=== PATIENT | female | born 1970 | race Two or more races ===

== ENCOUNTER 2019-11-30 17:15 | Observation (INO) | payer MEDICAID ==
[2019-11-30] MEDS ORDERED: HYDROmorphone 1 MG/ML Syringe IVPUSH STA (17:53)
[2019-11-30] MEDS ORDERED: Metoclopramide 10 MG/2 ML SDV IVPUSH ONE (17:53)
[2019-11-30] MEDS ORDERED: Sodium Chloride 0.9% 1,000 ML IV SCH (18:00)
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
[2019-11-30] MEDS ORDERED: Iopamidol 612 MG/ML 100 ML Bottle IVPUSH ONE (18:59)
[2019-11-30] MEDS ORDERED: Sodium Chloride 0.9% 10 ML Syringe FLUSH PRN (18:59)
--- NOTE | 2019-11-30 19:58 | CT ---
CT abdomen and pelvis Technique: Multiple axial sections were obtained from slightly below the top of the liver inferiorly through the pubic symphysis. Intravenous contrast was utilized. Small amount of contrast is noted within the stomach. Delayed images were obtained through the bladder. Comparison: No prior abdominal imaging. Findings: Visualized lung bases show nothing acute. Liver shows no focal parenchymal abnormality. There is a slight amount of decreased density next to the ligamentum teres fissure which represents small amount of fat which is felt to be a normal variant. Spleen size is normal. Adrenal glands show no nodule. Kidneys show symmetric contrast enhancement without hydronephrosis or mass. Pancreas is within normal limits. Gallbladder contains no calcified gallstones. Aorta shows no aneurysm. No retroperitoneal adenopathy or mesenteric abnormalities are seen. Minimal hiatal hernia is noted. Dilated air and fluid-filled small bowel are noted. This dilatation stops at the ileocecal valve. Colon is decompressed. Appendix not visualized with certainty. No pelvic mass or adenopathy is seen. No free fluid or inflammatory change is appreciated. Delayed images show no contrast within the bladder raising the possibility of dehydration. Bone window settings were reviewed. No acute osseous finding is seen. Mild degenerative change noted within the spine which is most prominent at L5-S1. Impression: 1. Fluid and air-filled dilated small bowel. This small bowel dilatation stops at the ileocecal valve. Etiology for this obstruction is not seen at the ileocecal valve. Colonoscopy is recommended to further evaluate. 2. Other findings believed to be incidental. No other acute abnormality is seen. Diagnostic code #5 This report was dictated in MDT
[2019-11-30] MEDS ORDERED: Ondansetron 4 MG/2 ML SDV IVPUSH ONE (20:13)
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
[2019-11-30] MEDS ORDERED: Piperacillin/Tazobactam 4.5 GM in Sodium Chloride 0.9% 100 ML IV ONE (21:00)
[2019-11-30] MEDS: Morphine 2 MG/ML Syringe IVPUSH PRN (21:16)
[2019-11-30] MEDS: Lactated Ringers 1,000 ML IV SCH (21:17)
[2019-11-30] MEDS ORDERED: Metoprolol Tartrate 5 MG/5 ML SDV IVPUSH ONE (22:09)
[2019-12-01] MEDS ORDERED: Metoprolol Tartrate 5 MG/5 ML SDV IVPUSH PRN (00:30)
[2019-12-01] MEDS: Morphine 2 MG/ML Syringe IVPUSH PRN (01:19)
[2019-12-01] MEDS: Piperacillin/Tazobactam 4.5 GM in Sodium Chloride 0.9% 100 ML IV SCH ×2 (05:14→15:11)
[2019-12-01] MEDS ORDERED: Ondansetron 4 MG/2 ML SDV IVPUSH PRN (06:05)
--- NOTE | 2019-12-01 07:23 | CR ---
Chest: Portable view of the chest was obtained. Comparison: No prior chest imaging is available. Heart size is normal. Tortuous thoracic aorta is seen. Nasogastric tube is seen with tip lying within the stomach. Lungs are clear. Bony structures are grossly intact. Impression: 1. Tip of nasogastric tube within the stomach. 2. Nothing acute is otherwise seen on portable chest x-ray. Diagnostic code #2 Study was dictated in MDT
--- NOTE | 2019-12-01 08:14 | PCM.SN ---
- Free Text/Narrative Note: Admitted last night with small bowel obstruction. IV metoprolol started last night for BP control. S: pain better. No flatus. O: Hypertensive with systolics >190 mm Hg on arrival to the wards. Improved with IV metoprolol. Other vitals within normal range. NG output <200 cc, looks clear Abd soft, not especially distended, with mild diffuse tenderness WBC down to 10 from 15; Cr stable at 1.2 A: small bowel obstruction with transition point at ileocecal junction, without good visualization of the appendix. Minimal NG output and unremarkable abdominal exam with regard to obstruction. P: Improvement in symptoms with IV fluid resuscitation and antibiotics. Given CT findings and persistent pain, plan for diagnostic laparoscopy today.
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
[2019-12-01] MEDS: Lactated Ringers 1,000 ML IV SCH (09:44)
[2019-12-01] MEDS ORDERED: Scopolamine 1.5 MG Transdermal Patch TOP ONE (09:47)
[2019-12-01] MEDS ORDERED: Bupivacaine 0.5%/EPINEPHrine 1:200,000 50 ML MDV ONE (09:48)
[2019-12-01] MEDS ORDERED: Rocuronium 50 MG/5 ML Vial ONE (10:01)
[2019-12-01] MEDS ORDERED: Midazolam 1 MG/ML 2 ML SDV ONE (10:02)
[2019-12-01] MEDS ORDERED: Ondansetron 4 MG/2 ML SDV ONE (10:02)
[2019-12-01] MEDS ORDERED: fentaNYL 250 MCG/5 ML SDV ONE (10:02)
[2019-12-01] MEDS ORDERED: Propofol 200 MG/20 ML SDV ONE (10:02)
[2019-12-01] MEDS ORDERED: Lactated Ringers 1,000 ML ONE (10:03)
[2019-12-01] MEDS ORDERED: Lidocaine 1% 4 ML ONE (10:04)
[2019-12-01] MEDS ORDERED: Succinylcholine/Sod PF 100 MG/5 ML SYRINGE IV ONE (10:06)
[2019-12-01] MEDS ORDERED: fentaNYL 100 MCG/2 ML SDV IVPUSH PRN (11:29)
[2019-12-01] MEDS ORDERED: HYDROmorphone 0.5 MG/0.5 ML Syringe IVPUSH PRN (11:29)
[2019-12-01] MEDS ORDERED: HYDROmorphone 0.5 MG/0.5 ML Syringe ONE (11:38)
--- NOTE | 2019-12-01 12:48 | PCM.POSTAN ---
POST ANESTHESIA ASSESSMENT - MENTAL STATUS Mental Status: Somnolent - VITAL SIGNS Vital Signs: Last Vital Signs Temp 98.7 F 12/01/19 12:36 Pulse 65 12/01/19 07:48 Resp 13 12/01/19 12:45 BP 160/92 H 12/01/19 12:45 Pulse Ox 100 12/01/19 12:45 - RESPIRATORY Respiratory Status: Respiratory Rate WNL, Airway Patent, O2 Saturation Stable, Supplemental Oxygen - CARDIOVASCULAR CV Status: Pulse Rate WNL, Blood Pressure Stable - GASTROINTESTINAL GI Status: No Symptoms - PAIN Pain Score: 0 - POST OP HYDRATION Hydration Status: Adequate & Stable
[2019-12-01] MEDS ORDERED: Prochlorperazine 10 MG/2 ML SDV IVPUSH PRN (13:05)
[2019-12-01] MEDS ORDERED: Simethicone 80 MG Tab.Chew PO PRN (13:05)
--- NOTE | 2019-12-01 13:24 | PCM.PRNOTE ---
- Free Text/Narrative Note: Date: 12/01/2019 Operation: diagnostic laparoscopy, cholecystectomy, gastric biopsy Surgeon: Roger Meeks MD Indications: abdominal pain and vomiting with CT showing transition point at ileocecal junction Findings: the entire small bowel was moderately dilated. There was straw colored ascites. The appendix and cecum looked and felt normal. The small bowel was run from terminal ileum to the Ligament of Treitz, with no abnormal findings. The gallbladder appeared distended and mildly inflamed. On closer inspection, the serosa of the body had hemorrhagic changes, and the gallbladder was difficult to grasp due to thickening and distention. A pearly white, irregular fungating lesion at the anterior serosal aspect near the pylorus, measuring about 1-2 cm in span, was noted and biopsied. The tissue was hard and difficult to grasp. Detailed Report: The patient was taken to the operating room and placed supine. Time out was performed and general endotracheal anesthesia induced. The abdomen was prepped and draped in sterile fashion. 0.5% marcaine with epinephrine was injected intradermally at all planned incision sites. A Veress needle was inserted into the abdomen at Obrien's point and the peritoneal cavity insufflated. A 5 mm trocar was placed just inferior to the umbilicus and a 5 mm 30 degree laparoscope inserted. Additional 5 mm ports were placed at the midline suprapubic region and the left lower quadrant. The appendix was exposed and appeared normal with no sign of inflammation. The cecum and ascending colon looked and felt normal and were not distended. The entire small bowel was moderately distended but appeared healthy. There was a fair amount of straw- colored perihepatic ascites noted. The small bowel was run from the terminal ileum to the Ligament of Treitz. No abnormalities were noted. The body of the stomach appeared grossly normal as did the liver. The gallbladder appeared mildly inflamed and distended. The fundus was grasped and the rest of the gallbladder exposed. There were hemorrhagic serosal changes noted, and the gallbladder was thickened and distended enough to make grasping a little difficult. A cholecystectomy was thus performed. The two 5 mm ports were relocated to the usual locations and skin incisions closed with vicryl suture. An additional 12 mm port was placed in the subxiphoid region. The gallbladder visceral peritoneum was incised transversely at the level of the infundibulum. The cystic duct and artery were carefully identified and cleared of surrounding tissue, and a critical view of safety was obtained. Clips were placed and the duct and artery transected with scissors. The gallbladder was then removed from the liver with monopolar. A small hole was inadvertently made near the fundus during dissection and bile spilled into the dissection field. The gallbladder was removed with an Endocatch device. The field was thoroughly irrigated and suctioned, and a small area of active hemorrhage at the gallbladder fossa was controlled with monopolar energy. A lesion near the pylorus, on the gastric side , was noted. It appeared pearly white with multilobular fungating appearance, with diameter of 1-2 cm. The tissue was hard and difficult to grasp. A laparoscopic biopsy forceps was used to sample the lesion for diagnosis. The 12 mm port was then removed after suctioning all the abdominal fluid out, and a PMI laparoscopic suture passer was used to close fascia at this site with 0 vicryl. Ports were removed under laparoscopic visualization, and pneumoperitoneum released. All skin incisions were closed with vicryl and dressed with dermabond. The patient tolerated the procedure well. Roger Meeks MD General Surgery
[2019-12-01] MEDS: D5 1/2 NS w/ 20 mEq/L KCl 1,000 ML IV SCH (15:18)
[2019-12-01] MEDS: oxyCODONE 5 MG Tab PO PRN (17:31)
[2019-12-02] MEDS ORDERED: Metoprolol Tartrate 5 MG/5 ML SDV IVPUSH ONE (01:06)
[2019-12-02] MEDS: oxyCODONE 5 MG Tab PO PRN ×3 (03:24→14:12)
[2019-12-02] MEDS: D5 1/2 NS w/ 20 mEq/L KCl 1,000 ML IV SCH (05:27)
--- NOTE | 2019-12-02 08:38 | PCM48HPAN ---
Post Anesthesia Note - EVALUATION WITHIN 48HRS OF ANESTHETIC Vital Signs in Normal Range: Yes Patient Participated in Evaluation: Yes Respiratory Function Stable: Yes Airway Patent: Yes Cardiovascular Function Stable: Yes Hydration Status Stable: Yes Pain Control Satisfactory: Yes Nausea and Vomiting Control Satisfactory: Yes Mental Status Recovered: Yes Vital Signs: Last Vital Signs Temp 98.4 F 12/02/19 03:12 Pulse 67 12/02/19 03:12 Resp 16 12/02/19 03:12 BP 168/94 H 12/02/19 03:36 Pulse Ox 95 12/02/19 03:12 - COMMENTS/OBSERVATIONS Free Text/Narrative:: Patient on her postoperative day 1. Patient has had significant nausea and headaches postoperatively, those symptoms have completely resolved now. Rates her postoperative pain as 3-4/10. Ambulating to the restroom, no difficulty urinating.
[2019-12-02] MEDS ORDERED: Metoprolol Succinate 25 MG Tab.ER PO SCH (09:00)
--- NOTE | 2019-12-02 09:22 | PCM.DCSUM1 ---
Discharge Summary - Hospital Course Free Text/Narrative:: Ms. Jennings presented to the emergency room the evening of 11/29 with 24 hours of abdominal pain and repeated episodes of vomiting. She had a leukocytosis and evidence of bowel obstruction vs ileus on CT scan. A nasogastric tube was placed , and she was admitted for fluid resuscitation and zosyn was started. She appeared better the next morning, but with suspicion for bowel obstruction from possible appendicitis she was taken to the operating room for diagnostic laparoscopy. In the OR, the appendix appeared normal, and there was no obstructing lesion identified at the ileocecal junction. The small bowel was moderately dilated throughout. No obstructing lesion was identified. There was a fair amount of straw colored ascites, mostly around the liver, and on closer inspection the gallbladder appeared acutely inflamed. 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 She tolerated the operation well, and postoperatively she did fine after removal of the nasogastric tube. Her pain was improved and she tolerated a diet, and on the morning of POD 1 she looked well and was deemed fit for discharge to home. Diagnosis: Stroke: No - Discharge Data Discharge Date: 12/02/19 Discharge Disposition: Home, Self-Care 01 Condition: Good - Referral to Home Health Primary Care Physician: PCP None - Patient Summary/Data Operative Procedure(s) Performed: diagnostic laparoscopy, cholecystectomy, biopsy of gastric lesion - Patient Instructions Diet: Usual Diet as Tolerated Activity: No Lifting Over 10 Pounds Wound/Incision Care: Keep Operative Site/Wound Site Clean and Dry Notify Provider of: Fever, Increased Pain, Swelling and Redness, Drainage, Nausea and/or Vomiting - Discharge Plan *PRESCRIPTION DRUG MONITORING PROGRAM REVIEWED*: No *COPY OF PRESCRIPTION DRUG MONITORING REPORT IN PATIENT MARIA G: No Prescriptions/Med Rec: Ondansetron [Ondansetron ODT] 4 mg PO Q6H PRN #15 tab.rapdis PRN Reason: Nausea oxyCODONE 5 mg PO Q4H #15 tab Home Medications: Home Meds Ondansetron [Ondansetron ODT] 4 mg PO Q6H PRN #15 tab.rapdis 12/02/19 [Rx] oxyCODONE 5 mg PO Q4H #15 tab 12/02/19 [Rx] Oxygen Therapy Mode: Room Air Patient Handouts: Ileus, Laparoscopic Cholecystectomy, Care After, [id number] Referrals: PCP,Unknown [Ordering Only Provider] - - Discharge Summary/Plan Comment DC Time >30 min.: No Discharge Summary/Plan Comment: plan to discharge the afternoon of 12/01 if patient tolerates diet and passes flatus. - Patient Data Vitals - Most Recent: Last Vital Signs Temp 36.9 C 12/02/19 03:12 Pulse 63 12/02/19 09:03 Resp 16 12/02/19 03:12 BP 152/72 H 12/02/19 09:03 Pulse Ox 96 12/02/19 08:53 Weight - Most Recent: 74.389 kg I&O - Last 24 hours: Intake & Output 12/01/19 12/02/19 12/02/19 22:59 06:59 14:59 Intake Total 130 1600 270 Output Total 1050 Balance 130 550 270 Med Orders - Current: Current Medications Metoprolol Succinate (Toprol Xl) 25 mg PO DAILY MICHAEL Last Admin: 12/02/19 09:03 Dose: 25 mg Miscellaneous Information (Remove Patch) 1 ea TRDERM ONETIME ONE Stop: 12/04/19 10:01 Ondansetron HCl (Zofran) 4 mg IVPUSH Q4H PRN PRN Reason: Nausea Last Admin: 12/01/19 17:14 Dose: 4 mg Oxycodone HCl (Oxycodone) 5 mg PO Q4H PRN PRN Reason: Pain (moderate 4-6) Last Admin: 12/02/19 09:04 Dose: 5 mg Simethicone (Simethicone) 80 mg PO Q6H PRN PRN Reason: Gas Sodium Chloride (Saline Flush) 10 ml FLUSH ONETIME PRN PRN Reason: Keep Vein Open Last Admin: 11/30/19 19:18 Dose: 10 ml Discontinued Medications Bupivacaine HCl/Epinephrine Bitart (Marcaine 0.5%/Epinephrine 1:200,000) Confirm Administered Dose 50 ml .ROUTE .STK-MED ONE Stop: 12/01/19 09:49 Last Admin: 12/01/19 11:08 Dose: 33 ml Fentanyl (Sublimaze) Confirm Administered Dose 250 mcg .ROUTE .STK-MED ONE Stop: 12/01/19 10:03 Fentanyl (Sublimaze) 100 mcg IVPUSH Q5M PRN PRN Reason: Pain Glycopyrrolate () Confirm Administered Dose 1 mg .ROUTE .STK-MED ONE Stop: 12/01/19 12:30 Hydromorphone HCl (Dilaudid) 1 mg IVPUSH ONETIME STA Stop: 11/30/19 17:54 Last Admin: 11/30/19 18:02 Dose: 1 mg Hydromorphone HCl (Dilaudid) 0.5 mg IVPUSH Q10M PRN PRN Reason: Pain (severe 7-10) Hydromorphone HCl (Dilaudid) Confirm Administered Dose 0.5 mg .ROUTE .STK-MED ONE Stop: 12/01/19 11:39 Sodium Chloride (Normal Saline) 1,000 mls @ 999 mls/hr IV ASDIRECTED [facility] Last Admin: 11/30/19 18:02 Dose: 999 mls/hr Lactated Ringer's (Ringers, Lactated) 1,000 mls @ 100 mls/hr IV ASDIRECTED [facility] Last Admin: 12/01/19 09:44 Dose: 100 mls/hr Piperacillin Sod/Tazobactam (Sod 4.5 gm/ Sodium Chloride) 100 mls @ 25 mls/hr IV Q8H [facility] Last Admin: 12/01/19 15:11 Dose: Not Given Piperacillin Sod/Tazobactam (Sod 4.5 gm/ Sodium Chloride) 100 mls @ 200 mls/hr IV ONETIME ONE Stop: 11/30/19 21:29 Last Admin: 11/30/19 21:17 Dose: 200 mls/hr Lactated Ringer's (Ringers, Lactated) Confirm Administered Dose 1,000 mls @ as directed .ROUTE .STK-MED ONE Stop: 12/01/19 10:04 Lidocaine HCl (Xylocaine-Mpf 1%) Confirm Administered Dose 4 mls @ as directed .ROUTE .STK-MED ONE Stop: 12/01/19 10:05 Potassium Chloride/Dextrose/Sod Cl (D5 1/2 Ns W/ 20 Meq/L Kcl) 1,000 mls @ 75 mls/hr IV ASDIRECTED [facility] Last Admin: 12/02/19 05:27 Dose: 75 mls/hr Iopamidol (Isovue-300 (61%)) 100 ml IVPUSH ONETIME ONE Stop: 11/30/19 19:00 Last Admin: 11/30/19 19:18 Dose: 100 ml Metoclopramide HCl (Reglan) 10 mg IVPUSH ONETIME ONE Stop: 11/30/19 17:54 Last Admin: 11/30/19 18:02 Dose: 10 mg Metoprolol Tartrate (Lopressor) 10 mg IVPUSH Q4H ONE Stop: 11/30/19 22:10 Last Admin: 11/30/19 22:42 Dose: 10 mg Metoprolol Tartrate (Lopressor) 5 mg IVPUSH Q1H PRN PRN Reason: Hypertension Last Admin: 12/01/19 00:42 Dose: 5 mg Metoprolol Tartrate (Lopressor) 5 mg IVPUSH ONETIME ONE Stop: 12/02/19 01:07 Last Admin: 12/02/19 01:13 Dose: 5 mg Midazolam HCl (Versed 1 Mg/Ml) Confirm Administered Dose 2 mg .ROUTE .STK-MED ONE Stop: 12/01/19 10:03 Morphine Sulfate (Morphine) 1 mg IVPUSH Q4H PRN PRN Reason: Pain (severe 7-10) Last Admin: 12/01/19 01:19 Dose: 1 mg Neostigmine Methylsulfate (Neostigmine Methylsulfate) Confirm Administered Dose 5 mg .ROUTE .STK-MED ONE Stop: 12/01/19 12:30 Ondansetron HCl (Zofran) 4 mg IVPUSH ONETIME ONE Stop: 11/30/19 20:14 Last Admin: 11/30/19 20:20 Dose: 4 mg Ondansetron HCl (Zofran) Confirm Administered Dose 8 mg .ROUTE .STK-MED ONE Stop: 12/01/19 10:03 Prochlorperazine Edisylate (Compazine) 5 mg IVPUSH Q30M PRN PRN Reason: Nausea Last Admin: 12/01/19 13:15 Dose: 5 mg Propofol (Diprivan 20 Ml) Confirm Administered Dose 200 mg .ROUTE .STK-MED ONE Stop: 12/01/19 10:03 Rocuronium [place] (Zemuron) Confirm Administered Dose 50 mg .ROUTE .STK-MED ONE Stop: 12/01/19 10:02 Scopolamine (Transderm-Scop) 1.5 mg TOP ONETIME ONE Stop: 12/01/19 09:48 Last Admin: 12/01/19 10:39 Dose: 1.5 mg
[2019-12-02] MEDS ORDERED: FLU Vacc QS2019-20(6MOS+)/PF 60 MCG/0.5 ML SYRINGE IM ONE (12:12)
== END 2019-12-02 15:11 | disposition home or self-care (01) ==
LOC: JD.ED 17:15 → JD.MS 20:46
PROVIDERS: ADMIT Surgery; ATTEND Surgery
DX: K80.10 Calculus of gallbladder with chronic cholecystitis without obstruction (principal); K56.609 Unspecified intestinal obstruction, unspecified as to partial versus complete obstruction; R18.8 Other ascites; K31.89 Other diseases of stomach and duodenum; I10 Essential (primary) hypertension
CPT/HCPCS: 36415; 43659; 47562; 71045; 74177; 80048; 80053; 81001; 83690; 85007; 85025; 85027; 90471; 90686; 93005; 96361; 96365; 96366; 96375; 96376; 99285; A9270; G0378; J0330; J0780; J1170; J2001; J2250; J2270; J2405; J2543; J2704; J2710; J2765; J3010; J3480; J3490; J7030; J7050; J7120; Q9967; 00790; 99284; G0008

== ENCOUNTER 2021-01-30 21:38 | Emergency (ER) | payer SELFPAY ==
--- NOTE | 2021-01-30 22:34 | EDM.PDOC ---
ED HPI GENERAL MEDICAL PROBLEM - General Chief Complaint: Headache Stated Complaint: headache Time Seen by Provider: 01/30/21 21:53 Source of Information: Reports: Patient, Significant Other (Fianc) History Limitations: Reports: No Limitations - History of Present Illness INITIAL COMMENTS - FREE TEXT/NARRATIVE: Ms. Phelan is a very pleasant 50-year-old woman who now presents the ED stating that she developed a headache, a hammer-like sensation felt behind her forehead and on the top of her head, this morning. No visual changes, such as blurry vision, wavy lines, or flashing lights. No neurologic symptoms, such as tingling, numbness, or weakness. She then developed a fever, body aches, nausea, and alternating chills and feeling hot, around 14:00 this afternoon. She states that she took some Advil and Tylenol this morning, but it did not seem to help. The patient states that she has been drinking a lot of cold water, to help cool her body down, which has caused her to have frequent urination. She denies having dysuria, per se, but states that her urine feels hot. No recent vomiting, constipation, diarrhea, abdominal pain, chest pain, palpitations, cough, or dyspnea. The patient states that she had a similar symptoms about 5 years ago when she was infected with chikungunya, in [place]. Here in the ED, the patient's initial BP is found to be elevated at 194/110, with tachycardia of 121 bpm. She has a fever of 100.9 degrees. Her oxygen saturation is 97% on room air. She appears to be relatively comfortable, in no acute distress. The patient states that she takes losartan plus another antihypertensive medication, but only on an as-needed basis, whenever she feels pressure in her head. She states that she took a dose this morning, plus yesterday morning. Prior to this morning, the patient denies having a recent fever, chills, sore throat, ear pain, nasal or sinus congestion, cough, dyspnea, chest pain, palpitations, nausea, vomiting, constipation, diarrhea, abdominal pain, urinary symptoms, recent weight gain or weight loss, recent bloody bowel movements or black bowel movements, recent joint aches, headaches, or rashes. The patient does not recall the name of her PCP. Headache Pain Score (Numeric/FACES): 10 Throat Pain Score (Numeric/FACES): 6 - Related Data Allergies Allergy/AdvReac Type Severity Reaction Status Date / Time No Known Allergies Allergy Verified 01/31/21 00:18 Home Meds: Home Meds Ondansetron [Ondansetron ODT] 4 mg PO Q6H PRN #15 tab.rapdis 12/02/19 [Rx] Losartan [Cozaar] 50 mg PO BID 01/30/21 [History] Past Medical History Cardiovascular History: Reports: Hypertension - Infectious Disease History Infectious Disease History: Reports: Novel Coronavirus (dx'd 01/30/2021) - Past Surgical History HEENT Surgical History: Reports: Oral Surgery (dental extractions) GI Surgical History: Reports: Cholecystectomy (around 2019) Female Surgical History: Reports: Section (x 1) Musculoskeletal Surgical History: Reports: Other (See Below) (Left foot debrid ement) - History Comment History Comment: naproxyn for pain in back Social & Family History - Tobacco Use Tobacco Use Status *Q: Never Tobacco User - Caffeine Use Caffeine Use: Reports: Coffee, Soda Caffeine Use Comment: Patient has one cup in morning and another in afternoon - Alcohol Use Alcohol Use History: Yes Alcohol Use Frequency: Socially - Recreational Drug Use Recreational Drug Use: No - Living Situation & Occupation Living situation: Reports: , with Significant Other (Fianc), with Family 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 ED EXAM, GENERAL - Physical Exam Exam: See Below Exam Limited By: No Limitations General Appearance: Alert, WD/WN, No Apparent Distress Eye Exam: Bilateral Eye: EOMI, Normal Inspection, PERRL Ears: Normal External Exam, Normal Canal, Hearing Grossly Normal, Normal TMs Nose: Normal Inspection, Normal Mucosa, No Blood Throat/Mouth: Normal Inspection, Normal Lips, Normal Teeth, Normal Gums, Normal Oropharynx, Normal Voice, No Airway Compromise Head: Atraumatic, Normocephalic, Other (Reproducible tenderness to palpation of the patient's scalp) Neck: Normal Inspection, Supple, Non-Tender, Full Range of Motion. No: Lymphadenopathy (L), Lymphadenopathy (R) Respiratory/Chest: No Respiratory Distress, Lungs Clear, Normal Breath Sounds, No Accessory Muscle Use Cardiovascular: Normal Peripheral Pulses, Regular Rate, Rhythm, No Edema, No Gallop, No JVD, No Murmur, No Rub Peripheral Pulses: 3+: Radial (L), Radial (R) GI/Abdominal: Normal Bowel Sounds, Soft, Non-Tender, No Organomegaly, No Distention, No Abnormal Bruit, No Mass Back Exam: Normal Inspection, Full Range of Motion, NT Extremities: Normal Inspection, Normal Range of Motion, No Pedal Edema, Normal Capillary Refill Neurological: Alert, Oriented, Normal Cognition, No Motor/Sensory Deficits Psychiatric: Normal Affect Skin Exam: Warm, Dry, Intact, Normal Color, No Rash Course - Vital Signs Last Recorded V/S: Last Vital Signs Temp 38.3 C H 01/30/21 22:01 Pulse 121 H 01/30/21 22:01 Resp 20 01/30/21 22:01 BP 194/110 H 01/30/21 22:01 Pulse Ox 97 01/30/21 22:01 - Orders/Labs/Meds Orders: Active Orders 24 hr Category Date Time Status CULTURE BLOOD [BC] Stat Lab 01/30/21 22:53 Received CULTURE BLOOD [BC] Stat Lab 01/30/21 22:56 Received Blood Culture x2 Reflex Set [OM.PC] Stat Oth 01/30/21 22:29 Ordered Labs: Laboratory Tests 01/30/21 01/30/21 01/30/21 Range/Units 22:50 22:53 22:53 WBC 6.20 (3.98-10.04) K/mm3 RBC 4.67 (3.98-5.22) M/mm3 Hgb 13.6 (11.2-15.7) gm/dl Hct 43.1 (34.1-44.9) % MCV 92.3 (79.4-94.8) fl MCH 29.1 (25.6-32.2) pg MCHC 31.6 L (32.2-35.5) g/dl RDW Std Deviation 43.4 (36.4-46.3) fL Plt Count 253 D (182-369) K/mm3 MPV 9.1 L (9.4-12.3) fl Neutrophils % (Manual) 77 H (40-60) % Band Neutrophils % 0 (0-10) % Lymphocytes % (Manual) 11 L (20-40) % Atypical Lymphs % 0 % Monocytes % (Manual) 10 (2-10) % Eosinophils % (Manual) 1 (0.7-5.8) % Basophils % (Manual) 1 (0.1-1.2) Platelet Estimate Adequate RBC Morph Comment Normal Sodium 136 (136-145) mEq/L Potassium 3.8 (3.5-5.1) mEq/L Chloride 98 (98-107) mEq/L Carbon Dioxide 28 (21-32) mEq/L Anion Gap 13.8 (5-15) BUN 22 H (7-18) mg/dL Creatinine 1.2 H (0.55-1.02) mg/dL Est Cr Clr Drug Dosing 58.61 mL/min Estimated GFR (MDRD) 48 (>60) mL/min BUN/Creatinine Ratio 18.3 H (14-18) Glucose 102 H (70-99) mg/dL Calcium 8.7 (8.5-10.1) mg/dL Magnesium 2.4 (1.8-2.4) mg/dL Total Bilirubin 0.2 (0.2-1.0) mg/dL AST 25 (15-37) U/L ALT 26 (14-59) U/L Alkaline Phosphatase 100 (46-116) U/L C-Reactive Protein 2.1 H* (<1.0) mg/dL Total Protein 8.0 (6.4-8.2) g/dl Albumin 3.7 (3.4-5.0) g/dl Globulin 4.3 gm/dL Albumin/Globulin Ratio 0.9 L (1-2) Urine Color (Yellow) Urine Appearance (Clear) Urine pH (5.0-8.0) Ur Specific [place] (1.005-1.030) Urine Protein (Negative) Urine Glucose (UA) (Negative) Urine Ketones (Negative) Urine Occult Blood (Negative) Urine Nitrite (Negative) Urine Bilirubin (Negative) Urine Urobilinogen (0.2-1.0) Ur Leukocyte Esterase (Negative) Urine RBC (0-5) /hpf Urine WBC (0-5) /hpf Ur Squamous Epith Cells (0-5) /hpf Urine Bacteria (FEW) /hpf Urine Mucus (FEW) /hpf Urine HCG, Qual (NEGATIVE) Influenza Type A RNA Negative (NEGATIVE) Influenza Type B RNA Negative (NEGATIVE) SARS-CoV-2 RNA (PATY) Positive H (NEGATIVE) 01/30/21 01/30/21 Range/Units 23:05 23:05 WBC (3.98-10.04) K/mm3 RBC (3.98-5.22) M/mm3 Hgb (11.2-15.7) gm/dl Hct (34.1-44.9) % MCV (79.4-94.8) fl MCH (25.6-32.2) pg MCHC (32.2-35.5) g/dl RDW Std Deviation (36.4-46.3) fL Plt Count (182-369) K/mm3 MPV (9.4-12.3) fl Neutrophils % (Manual) (40-60) % Band Neutrophils % (0-10) % Lymphocytes % (Manual) (20-40) % Atypical Lymphs % % Monocytes % (Manual) (2-10) % Eosinophils % (Manual) (0.7-5.8) % Basophils % (Manual) (0.1-1.2) Platelet Estimate RBC Morph Comment Sodium (136-145) mEq/L Potassium (3.5-5.1) mEq/L Chloride (98-107) mEq/L Carbon Dioxide (21-32) mEq/L Anion Gap (5-15) BUN (7-18) mg/dL Creatinine (0.55-1.02) mg/dL Est Cr Clr Drug Dosing mL/min Estimated GFR (MDRD) (>60) mL/min BUN/Creatinine Ratio (14-18) Glucose (70-99) mg/dL Calcium (8.5-10.1) mg/dL Magnesium (1.8-2.4) mg/dL Total Bilirubin (0.2-1.0) mg/dL AST (15-37) U/L ALT (14-59) U/L Alkaline Phosphatase (46-116) U/L C-Reactive Protein (<1.0) mg/dL Total Protein (6.4-8.2) g/dl Albumin (3.4-5.0) g/dl Globulin gm/dL Albumin/Globulin Ratio (1-2) Urine Color Yellow (Yellow) Urine Appearance Clear (Clear) Urine pH 6.5 (5.0-8.0) Ur Specific [place] 1.010 (1.005-1.030) Urine Protein 1+ H (Negative) Urine Glucose (UA) Negative (Negative) Urine Ketones Negative (Negative) Urine Occult Blood 3+ H (Negative) Urine Nitrite Negative (Negative) Urine Bilirubin Negative (Negative) Urine Urobilinogen 0.2 (0.2-1.0) Ur Leukocyte Esterase Trace H (Negative) Urine RBC 30-40 H (0-5) /hpf Urine WBC 0-5 (0-5) /hpf Ur Squamous Epith Cells 0-5 (0-5) /hpf Urine Bacteria Few (FEW) /hpf Urine Mucus Few (FEW) /hpf Urine HCG, Qual Negative (NEGATIVE) Influenza Type A RNA (NEGATIVE) Influenza Type B RNA (NEGATIVE) SARS-CoV-2 RNA (PATY) (NEGATIVE) Meds: Medications Discontinued Medications Generic Name Dose Route Start Last Admin Trade Name Freq PRN Reason Stop Dose Admin Ketorolac Tromethamine 30 mg 01/30/21 22:53 01/30/21 23:15 Ketorolac 30 Mg/Ml Sdv IVPUSH 01/30/21 22:54 30 mg ONETIME STA Administration - Re-Assessments/Exams Free Text/Narrative Re-Assessment/Exam: 01/30/21 22:30 As above, the patient developed a headache this morning, with no neurologic symptoms, then developed a fever, with chills, body aches, and nausea without vomiting around 2:00 this afternoon. She reports having possible dysuria, along with urinary frequency. No recent chest pain, palpitations, or dyspnea. Her neurologic examination is completely normal, as is her physical examination. I have ordered a work-up that includes several blood tests, 2 sets of blood cultures, a urinalysis by clean-catch, a urine test, and a swab for the SARS-CoV-2 virus and influenza A + B viruses. Since her initial BP was elevated at 194/110, I was going to treat her with a small dose of labetalol, however, her BP has since dropped to 156/120, without treatment, therefore an antihypertensive is not indicated. 01/30/21 23:50 The patient's CBC is unremarkable. Her CMP is remarkable for a BUN/Cr slightly elevated at 22/1.2, with slight hyperglycemia of 102, and the remainder of her CMP being unremarkable. Her magnesium level is within normal limits at 2.4. Her CRP is mildly elevated at 2.1. Her urinalysis is remarkable for 3+ occult blood with 30-40 RBCs, trace leukocyte esterase with 0-5 WBCs, nitrate negative with few bacteria, and 0-5 squamous epithelial cells. Her urine test is negative. Her swab for the SARS-CoV-2 virus is positive. Her swab for influenza A + B viruses is negative. The patient does not meet criterion for treatment with bamlanivimab-etesevimab of corticosteroids. 01/31/21 00:12 Test results discussed with the patient and her fianc. In accordance with current CDC guidelines, I advised the patient and her fianc to strictly quarantine for 2 weeks. If she remains symptomatic after 10 days, she will need to retest prior to breaking quarantine. I also advised her to notify the [employer] of her diagnosis. Departure - Departure Time of Disposition: 00:13 Disposition: Home, Self-Care 01 Condition: Good Clinical Impression: COVID-19 - Discharge Information *PRESCRIPTION DRUG MONITORING PROGRAM REVIEWED*: Not Applicable *COPY OF PRESCRIPTION DRUG MONITORING REPORT IN PATIENT MARIA G: Not Applicable Instructions: COVID-19 Frequently Asked Questions, Prevent the Spread of COVID- 19 if You Are Sick - [facility] Referrals: Eliu Melendez MD [Primary Care Provider] - Forms: ED Department Discharge Additional Instructions: You were seen in the emergency room after developing a headache this morning, followed by fever, chills, and body aches this afternoon. Work-up in the ER included several blood tests, 2 sets of blood cultures, a urinalysis, a urine test, and a swab for the SARS-CoV-2 virus and influenza A + B viruses. Your swab for the SARS-CoV-2 virus returned positive, indicating that you have COVID-19. The remainder of your work-up was unremarkable. Unfortunately, you do not qualify for treatment with corticosteroids or monoclonal antibodies. This illness will have to run its course. As discussed, we recommend that you try to avoid acetaminophen (Tylenol), ibuprofen (Advil, Motrin), or naproxen (Aleve), if possible, however, if your headache or body aches are severe enough, you may take 1 of these to help with your discomfort. Stay adequately hydrated. As discussed, it is imperative that you strictly quarantine for 2 weeks. If you are still having symptoms after 10 days, we recommend that you get retested for the virus, before breaking quarantine. As discussed, we recommend that you notify your middle school of your diagnosis. If any other problems, please do not hesitate to return to the ER. Sepsis Event Note (ED) - Evaluation Sepsis Screening Result: No Definite Risk - Focused Exam Vital Signs: Vital Signs Temp Pulse Resp BP Pulse Ox 01/30/21 22:01 38.3 C H 121 H 20 194/110 H 97 - My Orders Last 24 Hours: My Active Orders 01/30/21 22:29 Blood Culture x2 Reflex Set [OM.PC] Stat 01/30/21 22:53 CULTURE BLOOD [BC] Stat 01/30/21 22:56 CULTURE BLOOD [BC] Stat - Assessment/Plan Last 24 Hours: My Active Orders 01/30/21 22:29 Blood Culture x2 Reflex Set [OM.PC] Stat 01/30/21 22:53 CULTURE BLOOD [BC] Stat 01/30/21 22:56 CULTURE BLOOD [BC] Stat
[2021-01-30] MEDS ORDERED: Ketorolac 30 MG/ML SDV IVPUSH STA (22:53)
[2021-01-30 23:38] LABS: CORONAVIRUS COVID-19 NAA POSITIVE (NEGATIVE)
== END 2021-01-31 00:39 | disposition home or self-care (01) ==
LOC: JD.ED 21:38 → SUPCPDRO 21:38 → JD.ED 01-31 00:39
DX: U07.1 COVID-19 (principal); I10 Essential (primary) hypertension; Z86.16 Personal history of COVID-19; Z79.899 Other long term (current) drug therapy
CPT/HCPCS: 0240U; 36415; 80053; 81001; 81025; 83735; 85007; 85027; 86140; 87040; 96374; 99284; J1885; 99283